=== PATIENT | male | born 1980 | race Caucasian/White ===

== ENCOUNTER → 2018-07-17 | Emergency (ER) | payer SELFPAY ==
[~2018-07-17] VITALS: Ht 167.6 cm; Wt 77.1 kg
[~2018-07-17] MED LIST: Morphine Sulfate 4mg/ml Inj (IV/IM USE ONLY) IVP ONE; Pantoprazole Inj IV ONE
[2018-07-17 08:00] VITALS: BP 124/75
[2018-07-17 08:10] VITALS: BP 112/56
--- NOTE | 2018-07-17 08:38 | Emergency Room Report ---
History of Present Illness General Chief Complaint: Abdominal Pain Source: Patient Present Illness HPI 38-year-old male presents ED complaining of abdominal pain. Started 2 days ago. Sharp, epigastric, 9 out of 10, nonradiating. Also notes vomiting and diarrhea. States that his vomitus and diarrhea are very dark in color. Denies any prior history of ulcers. Denies any blood thinners. Denies alcohol or drug use. Denies chest pain or shortness of breath. No other aggravating relieving factors. Denies any other associated symptoms Allergies: Coded Allergies: METRONIDAZOLE (Verified Allergy, Unknown, 07/17/18) NSAIDS (NON-STEROIDAL ANTI-INFLAMMA (Verified Allergy, Unknown, 07/17/18) Uncoded Allergies: CONTRAST (Allergy, Unknown, 07/17/18) Patient History Past Medical History: none Past Surgical History: none Pertinent Family History: none Social History: Denies: smoking, alcohol use, drug use Immunizations: UTD Reviewed Nursing Documentation: PMH: Agreed; PSxH: Agreed Nursing Documentation-PMH Hx Gastrointestinal Problems: No - gallbladder removed 15 yrs ago Hx Seizures: Yes - as kids Review of Systems All Other Systems: negative except mentioned in HPI Physical Exam Vital Signs Date Time Temp Pulse Resp B/P (MAP) Pulse Ox O2 Delivery O2 Flow Rate FiO2 07/17/18 07:17 98.1 102 18 137/95 98 Room Air Sp02 EP Interpretation: reviewed, normal General Appearance: no apparent distress, alert, GCS 15, non-toxic Head: normocephalic, atraumatic Eyes: bilateral eye normal inspection, bilateral eye PERRL ENT: hearing grossly normal, normal pharynx, no angioedema, normal voice Neck: full range of motion, supple/symm/no masses Respiratory: chest non-tender, lungs clear, normal breath sounds, speaking full sentences Cardiovascular #1: regular rate, rhythm, no edema Cardiovascular #2: 2+ carotid (R), 2+ carotid (L), 2+ radial (R), 2+ radial (L) , 2+ dorsalis pedis (R), 2+ dorsalis pedis (L) Gastrointestinal: normal bowel sounds, soft, non-distended, no guarding, no rebound, tenderness - epigastric Rectal: deferred Genitourinary: normal inspection, no CVA tenderness Musculoskeletal: back normal, gait/station normal, normal range of motion, non- tender Neurologic: alert, oriented x3, responsive, motor strength/tone normal, sensory intact, speech normal Psychiatric: judgement/insight normal, memory normal, mood/affect normal, no suicidal/homicidal ideation Reflexes: 3+ bicep (R), 3+ bicep (L), 3+ tricep (R), 3+ tricep (L), 3+ knee (R) , 3+ knee (L) Skin: normal color, no rash, warm/dry, well hydrated Lymphatic: no adenopathy Medical Decision Making Diagnostic Impression: Primary Impression: Abdominal pain Qualified Codes: R10.10 - Upper abdominal pain, unspecified ER Course Hospital Course 38 yo M presents with abd pain, with coffee ground emesis, dark tarry stools Differential diagnoses include: UGIB, LGIB, hemorrhoids Clinical course Patient placed on stretcher. cinnamon grinder. After initial history and physical I ordered labs, IV fluids, protonix, zofran, pain meds Patient states he is a difficult IV access. States he was "poked multiple times " at another hospital yesterday. We attempted once and were unsuccessful. We asked to attempt other IV access or placed EJ. Patient declined. States he wants to leave Understands the risks of leaving. Patient has competency to make his own decisions. Signed AMA form. I feel this is a highly complex case requiring extensive working including EKG/ Rhythm strip, Xray/CT/US, Blood/urine lab work, repeat exams while in ED, and administration of strong opiates/narcotics for pain control, admission to hospital or close patient follow up. Diagnosis - abdominal pain patient left AMA Last Vital Signs Date Time Temp Pulse Resp B/P (MAP) Pulse Ox O2 Delivery O2 Flow Rate FiO2 07/17/18 08:10 98.6 80 18 112/56 99 Room Air Status: unchanged Disposition: AGAINST MEDICAL ADVICE Condition: Stable Scripts No Active Prescriptions or Reported Meds Referrals: NOT CHOSEN IPA/,REFERRING (PCP) Eliceo Hinojosa MD Jul 17, 2018 08:38
== END | disposition left against medical advice (07) ==
LOC: EMR 07:40 → CANBEDREQ 08:58
DX: R10.9 Unspecified abdominal pain (principal); R11.10 Vomiting, unspecified; R19.7 Diarrhea, unspecified; Z88.6 Allergy status to analgesic agent; Z88.1 Allergy status to other antibiotic agents; Z91.041 Radiographic dye allergy status
CPT/HCPCS: 96361; 96374; 96375; 99284